=== PATIENT | female | born 1960 | race Caucasian/White ===

== ENCOUNTER 2024-06-08 08:41 | Outpatient (CLI) | payer MEDICARE, MEDICAID ==
[2024-06-08] VITALS (8 sets, daily range): BP systolic 149–166; BP diastolic 74–97; PULSE 66–88; RESP 14–16; O2SAT 99–100
[~2024-06-08 08:41] MED LIST: METF500T PO; METOPROLOL; asa PO; levamir; nexium PO; novalog SQ; o2
[2024-06-08] MEDS: regadenoson 0.4mg/5ml syringe IV ONE (09:52)
== END 2024-06-08 23:59 | disposition home or self-care (01) ==
LOC: NM 08:41
PROVIDERS: ATTEND Internal Medicine Interventional Cardiology
DX: R06.02 Shortness of breath (principal)
CPT/HCPCS: 78452; 93017; A9502; J2785